=== PATIENT | male | born 1980 | race Caucasian/White ===

== ENCOUNTER 2016-11-21 09:17 | Emergency (ER) | payer SELFPAY ==
[~2016-11-21] VITALS: Ht 177.8 cm; Wt 78.0 kg
[2016-11-21 09:24] VITALS: BP 117/79; PULSE 93; RESP 16; TEMP 97.9; O2SAT 99
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
[2016-11-21] MEDS ORDERED: traMADol HCL 50 MG TAB PO ONE (10:00)
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
[2016-11-21 10:44] VITALS: BP 118/76
== END 2016-11-21 10:45 | disposition home or self-care (01) ==
LOC: PHED 09:17
DX: S60.222A Contusion of left hand, initial encounter (principal); M54.5 Low back pain; F17.210 Nicotine dependence, cigarettes, uncomplicated; V19.9XXA Pedal cyclist (driver) (passenger) injured in unspecified traffic accident, initial encounter; Y99.8 Other external cause status
CPT/HCPCS: 72100; 73130; 99283

== ENCOUNTER 2016-12-04 00:06 | Emergency (ER) | payer OTHER ==
[~2016-12-04] VITALS: Ht 177.8 cm; Wt 79.0 kg
[2016-12-04 00:11] VITALS: BP 156/94; PULSE 104; RESP 15; TEMP 97.6; O2SAT 100
[2016-12-04] MEDS ORDERED: SODIUM CHLOR 0.9% 1000 ML INJ 1,000 ML IV ONE (04:00)
[2016-12-04] MEDS ORDERED: CLINDAMYCIN INJ 900 MG in SODIUM CHLORIDE 0.9% INJ 100 ML IV ONE (04:00)
[2016-12-04] MEDS ORDERED: CLIN1CAP5 PO (04:15)
[2016-12-04] MEDS ORDERED: CLINDAMYCIN PHOS 900 MG/6 ML VIAL IM ONE (04:15)
--- NOTE | 2016-12-04 04:17 | PD ---
HPI Chief Complaint: Skin Problem Time Seen by Provider: 03:01 Travel History International Travel<30 days: No Contact w/Intl Traveler<30days: No Traveled to known affect area: No History of Present Illness HPI 36-year-old male arrives with left upper extremity erythema. He was evidently bitten by a spider one week prior in the region of the volar DRUJ. Since then he has developed erythema which has migrated proximally towards the axilla. He denies fever however reports the upper extremity does feel warm. There is minimal pain worse with palpation. He has a bite on the dorsal hand as well. Patient adamantly denies IV drug abuse. PFSH Past Medical History Medical History: Denies Significant Hx Hx Anticoagulant Therapy: No Diabetes: No Diminished Hearing: No Immunizations Current: Yes Tetanus Vaccination: > 5 Years Past Surgical History Surgical History: No Previous Surgery Social History Alcohol Use: Yes (wine, occasionally; "1/5 last night" stated 11/21/16) Tobacco Use: Yes (1 ppd) Substance Use: No (DENIES HX OF METH, HERION, COCAINE) Allergies-Medications (Allergen,Severity, Reaction): Coded Allergies: Penicillin (Verified Allergy, Severe, Anaphylaxis, 12/04/16) Reported Meds & Prescriptions Reported Meds & Active Scripts Active Clindamycin (Clindamycin HCl) 150 Mg Cap 450 Mg PO Q8HR 14 Days Review of Systems Except as stated in HPI: all other systems reviewed are Neg Physical Exam Narrative GENERAL: 36-year-old male well-nourished well-developed sleep walking around SKIN: Warm and dry. Erythema from the volar DRUJ to the distal humerus consistent with lymphangitic streaking in region of LUE. 1cm area of of fibrinous exudate volar and 1cm area of fibrinous exudate dorsal hand without erythema. HEAD: Atraumatic. Normocephalic. EYES: Pupils equal and round. No scleral icterus. No injection or drainage. PSYCHIATRIC: Appropriate mood and affect; insight and judgment normal. Data Data Last Documented VS Vital Signs Date Time Temp Pulse Resp B/P Pulse Ox O2 Delivery O2 Flow Rate FiO2 12/04/16 04:52 92 18 149/86 96 Room Air 12/04/16 00:11 97.6 Pulse 88 on my exam at R radial artery 415am Orders Clindamycin Inj (Cleocin Inj) (12/04/16 04:00) Sodium Chlor 0.9% 1000 Ml Inj (Ns 1000 M (12/04/16 04:00) Clindamycin Inj (Cleocin Inj) (12/04/16 04:15) [facility] Medical Decision Making Medical Screen Exam Complete: Yes Emergency Medical Condition: Yes Medical Record Reviewed: Yes Differential Diagnosis Cellulitis, abscess, lymphangitis Narrative Course The patient has cellulitis of the left upper extremity with some lymphangitic streaking. We have marked the extent of erythema about the left upper extremity. A clindamycin 900 mg IM. Clindamycin prescription. Strict return precautions discussed. He adamantly denies drug abuse intravenous or otherwise. Pulse at time of discharge is 90 and the patient is afebrile. Diagnosis Primary Impression: Cellulitis Qualified Code: L03.114 - Cellulitis of left upper extremity Additional Impression: Insect bite Qualified Code: W57.XXXA - Insect bite, initial encounter Referrals: RETURN TO ER IN 2 DAYS FOR WOUND CHECK 2 days Additional Instructions: You have a choice when it comes to health care, and we are glad that you chose [facility]. Hopefully, we have met your expectations on today's visit. You are welcome to return to [facility] at any time, as we are committed to meeting the health care needs of our community. Med/Other Pt SpecificInfo: Prescription(s) given Scripts Clindamycin 150 Mg [id number] Mg PO Q8HR 14 Days Ref 0 Prov:Abhishek Wang MD 12/04/16 Disposition: 01 DISCHARGE HOME Condition: Stable Abhishek Wang MD Dec 04, 2016 04:17
[2016-12-04 04:52] VITALS: BP 149/86; PULSE 92; RESP 18; O2SAT 96
== END 2016-12-04 04:55 | disposition home or self-care (01) ==
LOC: NEPE 00:06
DX: S60.862A Insect bite (nonvenomous) of left wrist, initial encounter (principal); L03.114 Cellulitis of left upper limb; F17.210 Nicotine dependence, cigarettes, uncomplicated; W57.XXXA Bitten or stung by nonvenomous insect and other nonvenomous arthropods, initial encounter
CPT/HCPCS: 96372